=== PATIENT | female | born 1970 | race Caucasian/White ===

== ENCOUNTER 2019-10-21 14:05 | Outpatient (CLI) | payer OTHER, SELFPAY ==
[2019-10-21 15:44] LABS: Immature Reticulocyte Fraction 11.1 % (3.0-15.9); Reticulocyte Percent 1.41 % (0.7-4.3); Reticulocytes Absolute 0.06 B/L (32.2-175.7)
[2019-10-21 15:51] LABS: Hematocrit 35.9 % (37.0-47.0); Hemoglobin 11.6 g/dL (12.0-15.0); Mean Corpuscular HGB Conc 32.3 g/dl (32-36); Mean Corpuscular Hemoglobin 27.5 pg (26-34); Mean Corpuscular Volume 85.1 fl (80-100); Mean Platelet Volume 10.2 fl (7.4-10.4); Platelet Count Result 277 k/mm3 (150-375); Red Blood Count 4.22 M/mm3 (4.2-5.4); Red Cell Distribution Width 13.9 % (11.5-14.5); White Blood Count 6.6 K/mm3 (4.5-10.0)
[2019-10-21 15:55] LABS: Lipase 85 U/L (23-300)
[2019-10-21 16:01] LABS: CRP < 0.5 mg/dL (<1.0)
[2019-10-21 16:26] LABS: Iron 49 ug/dL (37-170)
[2019-10-21 16:37] LABS: Percent Iron Saturation 13 % (20-50)
[2019-10-21 16:45] LABS: Erythrocyte Sedimentation Rate 17 mm/hr (0-20)
[2019-10-21 17:04] LABS: Ferritin 6.38 ng/mL (11.1-264)
[2019-10-26 14:41] LABS: Tissue Transglutaminase IgA Ab 1 U/mL (<4)
[2019-10-27 21:56] LABS: Tissue Transglutaminase IgG Ab 1 U/mL (<6)
== END 2019-10-21 14:06 | disposition home or self-care (01) ==
PROVIDERS: Internal Medicine Gastroenterology; Physician Assistant; Visit Provider Family Medicine
DX: D64.9 Anemia, unspecified (principal); R10.9 Unspecified abdominal pain; R19.7 Diarrhea, unspecified
CPT/HCPCS: 36415; 82728; 83516; 83540; 83550; 83690; 85027; 85046; 85652; 86140; 87045; 87046; 87427; 89055

== ENCOUNTER 2019-11-10 01:25 | Outpatient (CLI) | payer OTHER, SELFPAY ==
[2019-11-10 19:01] LABS: SARS-CoV-2 RNA PCR Negative
== END 2019-11-10 01:26 | disposition home or self-care (01) ==
LOC: ANHCOVIDDT 01:25
PROVIDERS: Visit Provider Internal Medicine Gastroenterology
DX: Z01.818 Encounter for other preprocedural examination (principal); Z11.59 Encounter for screening for other viral diseases
CPT/HCPCS: 87635; C9803; U0003

== ENCOUNTER 2019-11-12 03:54 | Day surgery (SDC) | payer OTHER, SELFPAY ==
[2019-11-04 13:13] VITALS: BMI 28.1
[2019-11-12 13:05] VITALS: BP 135/77; PULSE 99; RESP 18; TEMP 36.3; O2SAT 97; BMI 30.4
[2019-11-12] MEDS: LACTATED RINGERS 1,000 ML 150 ML IV CONT (13:23)
--- NOTE | 2019-11-12 13:30 | SUR.PREOP ---
pt notified of approx 20 min delay in procedure start time. pt verbalizes understanding.
--- NOTE | 2019-11-12 13:40 | WPDANESEPPF ---
Anes - Initial Pre Proc Eval Procedure: Operation Date: 11/12/19 14:15 Proposed Procedures p Screening Colonoscopy - James Lezama MD Date/Time: 11/12/19 13:40 Surgeon: James Lezama MD Pre Op Diagnosis: neoplasm Screening Patient Data Age: 49 Gender: F Height: 5 ft 8 in Weight: 90.9 kg Last Vital Signs Temp 36.3 C L 11/12/19 13:05 Pulse 99 11/12/19 13:05 Resp 18 11/12/19 13:05 BP 135/77 11/12/19 13:05 Pulse Ox 97 11/12/19 13:05 Allergies Allergy/AdvReac Type Severity Reaction Status Date / Time nitrofurantoin Allergy Severe Difficulty Verified 11/12/19 13:05 Breathing levofloxacin Allergy Intermediate Fainting Verified 11/12/19 13:05 Penicillins Allergy Intermediate Hives Verified 11/12/19 13:05 benzonatate Allergy Unknown Unknown Verified 11/12/19 13:05 erythromycin base Allergy Unknown Unknown Verified 11/12/19 13:05 NITRATE Allergy Severe Difficulty Uncoded 11/04/19 13:55 Breathing Home Medications Medication Instructions Recorded Confirmed Type cetirizine 5 mg-pseudoephedrine ER 1 tablet PO Q12H 05/06/19 11/04/19 History 120 mg tablet,extended release,12hr omeprazole 40 mg capsule,delayed 40 mg PO DAILY 05/11/19 11/04/19 History release betamethasone valerate 0.1 % 1 applic TOPICAL DAILY #45 gm 07/05/19 11/04/19 Rx topical cream alprazolam 0.25 mg tablet 0.25 mg PO TID PRN #90 tablet 08/11/19 11/04/19 Rx peg 3350-electrolytes 236 240 ml PO Q10M #4000 ml 11/03/19 11/12/19 Rx gram-22.74 gram-6.74 gram-5.86 gram solution aspirin [Adult Low Dose Aspirin] 81 mg PO DAILY 11/04/19 11/04/19 History cholecalciferol (vitamin D3) 50 mcg PO DAILY 11/04/19 11/04/19 History vitamin B complex [B 1 tablet PO DAILY 11/04/19 11/04/19 History Complex-Vitamin B12] Patient hx anesthesia problems: post op nausea/vomiting Family hx anesthesia problems: none PMFSH Past Medical History Medical History Anemia Anxiety Colon cancer screening GERD (gastroesophageal reflux disease) Migraine Vitamin B12 deficiency Vitamin D deficiency Surgical History Surgical History History of lumpectomy Hx of tonsillectomy Family History Family History Other Diabetes mellitus Family history of arthritis Family history of coronary artery disease Family history of malignant neoplasm Hypertension Social History Social History Smoking status: Never smoker Second hand tobacco smoke exposure: No Alcohol intake: current Anes - Eval Final PreProcedure Day of Procedure 11/12/19 13:40 Patient weight: obese Heart: regular rate and rhythm Lungs: clear to auscultation Airway: Mallampati scale class II Neurological: alert and oriented Last oral intake: >/= 8 hours ASA classification: II Emergent: no Anesthetic plan: proceed Anesthesia type and monitoring: general GIVS and standard monitoring Informed Consent: The patient's anesthetic plan and its attendant risks and benefits were discussed with the patient/family/POA. Questions were solicited and answers provided to the satisfaction of the patient/family/POA.
--- NOTE | 2019-11-12 14:06 | WPDHPUPDATE1 ---
History and Physical Update Update Date/Time: 11/12/19 14:06 History and Physical has been reviewed, including an updated exam of the patient. There are NO changes in the patient's condition. Risks, benefits, and alternatives have been discussed and questions answered. Patient agrees to proceed with procedure.
[2019-11-12 14:21] VITALS: BP 108/77; PULSE 88; RESP 16; O2SAT 100
[2019-11-12 14:31] VITALS: BP 126/83; PULSE 79; RESP 16; O2SAT 100
[2019-11-12 14:41] VITALS: BP 127/84; PULSE 73; RESP 14; O2SAT 100
== END 2019-11-12 14:52 | disposition home or self-care (01) ==
PROVIDERS: Visit Provider Internal Medicine Gastroenterology
PROC: 0DJD8ZZ Inspection of Lower Intestinal Tract, Via Natural or Artificial Opening Endoscopic (ICD-10-PCS; CPT 45378; principal; 2019-11-12 14:15)
DX: Z12.11 Encounter for screening for malignant neoplasm of colon (principal); K57.30 Diverticulosis of large intestine without perforation or abscess without bleeding; K21.9 Gastro-esophageal reflux disease without esophagitis; E78.5 Hyperlipidemia, unspecified; F41.9 Anxiety disorder, unspecified; E53.8 Deficiency of other specified B group vitamins; E55.9 Vitamin D deficiency, unspecified; E66.9 Obesity, unspecified; Z68.30 Body mass index [BMI] 30.0-30.9, adult; Z88.0 Allergy status to penicillin; Z79.82 Long term (current) use of aspirin; Z79.899 Other long term (current) drug therapy
CPT/HCPCS: G0121; J2001; J2704; J7120

== ENCOUNTER 2020-05-15 12:58 | Outpatient (CLI) | payer OTHER, SELFPAY ==
--- NOTE | ~2020-05-15 | MMUS_ITS ---
EXAMINATION: MM diagnostic sourav BI w paola, US breast BI complete HISTORY: Previous abnormal mammogram TECHNIQUE: Full field and spot ML, MLO and craniocaudal 3-D tomosynthesis images of both breasts were performed and synthetic 2-D images were generated. CAD analysis was submitted and interpreted. High resolution bilateral complete breast ultrasound was performed. COMPARISON: 04/30/2019 bilateral complete breast ultrasound 04/23/2019 bilateral diagnostic digital mammogram 03/09/2018, 03/07/2017 bilateral diagnostic digital mammogram BREAST PARENCHYMAL COMPOSITION: The breasts are heterogeneously dense, which may obscure small masses . FINDINGS: MAMMOGRAPHIC FINDINGS: Stable bilateral breast masses are noted, measuring up to approximately 9 mm in the upper outer quadr ant of the right breast and possibly up to 12 mm in the anterior inner mid to upper left breast. No interval suspicious mass or architectural distortion is evident. No malignant calcification, skin thickening or retraction is detected. ULTRASOUND: Multiple bilateral parallel circumscribed anechoic and hypoechoic lesions without internal vascularit y or suspicious shadowing are identified in both breasts as on previous examination of 04/30/2019. Right breast 2:00 near nipple: 7.9 x 4.1 x 6.6 cm circumscribed hypoechoic lesion without suspicious shadowing Right breast 5:00 near nipple: 7.6 x 4.5 x 8.3 mm circumscribed hypoechoic parallel lesion without gastelum spicious shadowing or internal vascularity Right breast 8:00 2 cm from nipple: 12.2 x 4.1 x 8.9 mm circumscribed hypoechoic lesion without inter nal vascularity or posterior shadowing Right breast near nipple, 9:00 position: Circumscribed oval hypoechoic 12.6 x 7.7 x 11.4 mm hypoechoi c lesion without internal vascularity or posterior shadowing. Left breast: 4:00 6 cm from nipple: 9.1 x 3.8 x 6.5 mm circumscribed hypoechoic lesion without internal vascularit y or posterior shadowing 8:00 subareolar area: 13.9 x 7.9 x 12.7 mm circumscribed parallel hypoechoic lesion without internal vascularity, diminished in size from 9.8 x 5.8 x 16.1 mm dimension on 04/30/2019 IMPRESSION: 1. Bilateral persistent benign appearing breast masses 2. Routine annual mammographic screening follow-up is recommended. BI-RADS Category 2: Benign finding(s). Reviewed, dictated and finalized at location A. R HELPER IMPRESSION: 1. Bilateral persistent benign appearing breast masses 2. Routine annual mammographic screening follow-up is recommended. BI-RADS Category 2: Benign finding(s).
== END 2020-05-15 12:59 | disposition home or self-care (01) ==
LOC: ANHIMG 13:01
PROVIDERS: Visit Provider Obstetrics & Gynecology
DX: N63.24 Unspecified lump in the left breast, lower inner quadrant (principal); N63.23 Unspecified lump in the left breast, lower outer quadrant; N63.13 Unspecified lump in the right breast, lower outer quadrant; N63.14 Unspecified lump in the right breast, lower inner quadrant
CPT/HCPCS: 76641; 77062; 77066; G0279

== ENCOUNTER → 2020-07-17 10:14 | Outpatient (CLI) | payer OTHER, SELFPAY ==
[2020-07-17 20:24] LABS: SARS-CoV-2 RNA PCR Negative
== END ==
PROVIDERS: Visit Provider Physician Assistant
DX: R05 Cough (principal); Z20.822 Contact with and (suspected) exposure to COVID-19
CPT/HCPCS: C9803; U0003; U0005

== ENCOUNTER 2021-05-24 13:22 | Outpatient (CLI) | payer OTHER, SELFPAY ==
--- NOTE | ~2021-05-24 | MM_ITS ---
EXAMINATION: MM diagnostic sourav BI w paola HISTORY: History of bilateral breast masses and family history of breast cancer in her mother TECHNIQUE: Craniocaudal, mediolateral, and mediolateral oblique 3-D tomosynthesis images of the breas ts were performed and synthetic 2-D images were generated. CAD analysis was submitted and interpreted . COMPARISON: 05/15/2020, 04/23/2019, 03/09/2018, 03/07/2017 BREAST PARENCHYMAL COMPOSITION: There are scattered areas of fibroglandular density. FINDINGS: Stable bilateral breast masses are considered benign given the lack of interval change. The re is no evidence of suspicious mass, calcification, or architectural distortion in either breast to suggest malignancy. There has been no suspicious interval change. IMPRESSION: 1. No mammographic evidence of malignancy. 2. Recommend routine screening mammography in one year. BI-RADS Category 2: Benign finding(s). Reviewed, dictated and finalized at location A. STRENGTH INSPECTOR
== END 2021-05-24 13:23 | disposition home or self-care (01) ==
PROVIDERS: PCP Family Medicine; Visit Provider Obstetrics & Gynecology
DX: R92.8 Other abnormal and inconclusive findings on diagnostic imaging of breast (principal)
CPT/HCPCS: 77062; 77066; G0279

== ENCOUNTER → 2021-05-29 03:20 | Outpatient (CLI) | payer OTHER, SELFPAY ==
[2021-05-29 19:06] LABS: SARS-CoV-2 RNA PCR Positive
== END ==
PROVIDERS: PCP Family Medicine; Visit Provider Physician Assistant
DX: U07.1 COVID-19 (principal)
CPT/HCPCS: C9803; U0003; U0005

== ENCOUNTER 2021-07-08 22:20 | Emergency (ER) | payer OTHER, SELFPAY ==
--- NOTE | ~2021-07-08 | CT_ITS ---
EXAMINATION: CT brain wo con DATE: 07/08/2021 23:35 INDICATION: Head injury. TECHNIQUE: Computed tomography (CT) of the head was performed without intravenous contrast. The mA wa s adjusted according to patient size. Iterative reconstruction technique was employed. The dose-lengt h product was 681.00 mGy-cm. COMPARISON: Head CT 02/11/2013 FINDINGS: There is no intracranial hemorrhage, acute infarction, or abnormal intracranial mass lesion . The ventricles are normal in size. There is mild mucosal thickening in the paranasal sinuses. There are fractures of the nasal bones. The mastoid air cells are normal. The orbits are normal. There is forehead soft tissue swelling. IMPRESSION: 1. Normal brain. 2. Fractures of the nasal bones. Reviewed, dictated and finalized at location A.
--- NOTE | ~2021-07-08 | CT_ITS ---
EXAMINATION: CT facial & cervical spine wo DATE: 07/08/2021 23:35 INDICATION: Face and neck pain. Fall. TECHNIQUE: Computed tomography (CT) of the maxillofacial region and cervical spine was performed with out intravenous contrast. Automated exposure control and iterative reconstruction technique were empl oyed. The dose-length product was 487.90 mGy-cm. COMPARISON: CT cervical spine 01/05/2011 FINDINGS: MAXILLOFACIAL CT: There is forehead soft tissue swelling. There is mild mucosal thickening in the paranasal sinuses. Th ere is rightward deviation of the nasal septum. There are fracture deformities of the nasal bones. Th e orbits are normal. The mastoid air cells are normal. CERVICAL SPINE CT: There is mild scarring at the lung apices. There is 6 degrees levocurvature of cervical spine. There is kyphosis of cervical spine. Vertebral body heights are normal. There is mildly decreased disc heig ht at C3-C4 and C4-C5 and moderately decreased disc height at C5-C6 and C6-C7. The following disc lev els are specifically discussed: C2-C3: There is mild bilateral uncovertebral joint osteoarthritis. There is severe bilateral facet rolanda int osteoarthritis. There is no neural foraminal stenosis. There is no central canal stenosis. C3-C4: There is mild bilateral uncovertebral joint osteoarthritis. There is moderate right and severe left facet joint osteoarthritis. There is mild left neural foraminal stenosis. There is no central c anal stenosis. C4-C5: There is mild right and moderate left uncovertebral joint osteoarthritis. There is mild right and moderate left facet joint osteoarthritis. There is mild left neural foraminal stenosis. There is mild central canal stenosis. C5-C6: There is severe bilateral uncovertebral joint osteoarthritis. There is mild right and severe l eft facet joint osteoarthritis. There is mild right and moderate left neural foraminal stenosis. Ther e is mild central canal stenosis. C6-C7: There is mild right and severe left uncovertebral joint osteoarthritis. There is mild bilatera l facet joint osteoarthritis. There is moderate left neural foraminal stenosis. There is mild central canal stenosis. C7-T1: There is mild right uncovertebral joint osteoarthritis. There is moderate and severe left face t joint osteoarthritis. There is mild left neural foraminal stenosis. There is no central canal steno sis. IMPRESSION: 1. Fracture deformities of the nasal bones, which may be chronic. 2. Moderate cervical spondylosis. Reviewed, dictated and finalized at location A.
[2021-07-08 22:20] VITALS: BP 141/89; PULSE 90; RESP 14; O2SAT 100
[2021-07-08 22:29] VITALS: TEMP 36.9
--- NOTE | 2021-07-08 22:54 | ED.HEATRA ---
HPI - Head Injury General Chief complaint: Head Injury Stated complaint: fall with facial injuries Time Seen by Provider: 07/08/21 22:43 History of Present Illness HPI Narrative: 50-year-old female presented to emergency room with complaints of facial trauma. Patient states that she fell forward when attempting to pick something up and struck her face on the ground. Complains of pain to the nose, associated with epistaxis. Also complains of laceration to the upper lip. Denies loss of consciousness. Denies lightheadedness, dizziness, or altered mental status. Denies visual or hearing changes. Related Data Home Medications Medication Instructions Recorded Confirmed cetirizine 5 mg-pseudoephedrine ER 1 tablet PO Q12H 05/06/19 05/14/21 120 mg tablet,extended release,12hr aspirin [Adult Low Dose Aspirin] 81 mg PO DAILY 11/04/19 05/14/21 cholecalciferol (vitamin D3) 50 mcg PO DAILY 11/04/19 05/14/21 vitamin B complex [B 1 tablet PO DAILY 11/04/19 05/14/21 Complex-Vitamin B12] Allergies Allergy/AdvReac Type Severity Reaction Status Date / Time nitrofurantoin Allergy Severe Difficulty Verified 05/14/21 14:24 Breathing levofloxacin Allergy Intermediate hypokalemia Verified 05/14/21 14:24 Penicillins Allergy Intermediate Hives Verified 05/14/21 14:24 amoxicillin Allergy Mild Unknown Verified 05/14/21 14:24 benzonatate Allergy Unknown Unknown Verified 05/14/21 14:24 erythromycin base AdvReac Severe Nausea Verified 05/14/21 14:24 NITRATE Allergy Severe Difficulty Uncoded 10/31/20 11:38 Breathing Review of Systems Review of Systems: CONSTITUTIONAL: Denies fever, chills, or sweats. EYES: Denies visual changes, redness, or discharge. ENT: Reports nasal pain, reports epistaxis CARDIOVASCULAR: Denies chest pain, palpitations, or edema. RESPIRATORY: Denies cough or dyspnea. GASTROINTESTINAL: Denies abdominal pain, nausea, vomiting, or diarrhea. GENITOURINARY: Denies dysuria or hematuria. SKIN: Denies rash or itching. MUSCULOSKELETAL: Denies back pain, joint pain, or myalgia. NEUROLOGIC: Denies headache, numbness, dizziness, or weakness. PSYCHIATRIC: Denies anxiety or depression. [facility] Past Medical History Medical History Anemia Anxiety Colon cancer screening (~09/2019) Normal Depression GERD (gastroesophageal reflux disease) Migraine Normal Pap smear Vitamin B12 deficiency Vitamin D deficiency Surgical History Surgical History Delivery by section (04/28/03) primary emergency c/s breech Delivery by section (05/11/08) rpt c/s H/O sinus surgery (~04/28/98) H/O ultrasound guided needle biopsy (09/26/15) us guided core bx of right breast / fibroadenoma History of gynecological procedure (03/05/16) mirena iud removal and insertion of new device History of gynecological procedure (10/11/08) mirena iud insertion History of lumpectomy (~04/28/84) lumpectomy 86' 87'95' 98' Hx of tonsillectomy (~04/28/75) Family History Family History Other Diabetes mellitus Family history of arthritis Family history of coronary artery disease Family history of malignant neoplasm Hypertension Social History Social History Second hand tobacco smoke exposure: No Alcohol intake: current Drinks per week: 1 Substance use: never Substance use type: does not use Gender identity (if verbalized by the patient): Female Spiritual care concerns: No Agree to blood products: Yes Exam Narrative: GENERAL: Well-appearing, well-nourished, and in no acute distress. HEAD: Normocephalic, atraumatic. Obvious bony abnormality to the nose with ecchymosis and tenderness EYES: PERRLA and EOMI. ENT: Epistaxis controlled. NECK: Supple. No adenopathy or masses. No carotid bruits or
[2021-07-09] MEDS: TETANUS,DIPHTHERIA,AC PERTUSSIS ADULT (0.5 ML) BOOSTRIX IM (01:46)
[2021-07-09 02:01] VITALS: BP 134/91; PULSE 98; RESP 18; O2SAT 100
== END 2021-07-09 02:01 | disposition home or self-care (01) ==
PROVIDERS: Emergency Provider Nurse Practitioner Family; PCP Family Medicine
DX: S01.511A Laceration without foreign body of lip, initial encounter (principal); S00.33XA Contusion of nose, initial encounter; Z23 Encounter for immunization; K21.9 Gastro-esophageal reflux disease without esophagitis; E53.8 Deficiency of other specified B group vitamins; E55.9 Vitamin D deficiency, unspecified; Z86.2 Personal history of diseases of the blood and blood-forming organs and certain disorders involving the immune mechanism; Z79.82 Long term (current) use of aspirin; M47.812 Spondylosis without myelopathy or radiculopathy, cervical region; W18.39XA Other fall on same level, initial encounter
CPT/HCPCS: 12051; 70450; 70486; 72125; 90471; 90715; 99284

== ENCOUNTER 2022-03-30 13:34 | Emergency (ER) | payer OTHER, SELFPAY ==
[2022-03-30 13:42] VITALS: BP 130/85; PULSE 85; RESP 16; TEMP 36.8; O2SAT 100
--- NOTE | 2022-03-30 14:02 | ED.URI ---
HPI - URI/Sore Throat General Chief Complaint: Ear Stated Complaint: ear pain sinus pressure Time Seen by Provider: 03/30/22 14:02 Source: patient and RN notes reviewed History of Present Illness HPI Narrative: patient is a 51-year-old female who presents to urgent care with complaints of right-sided ear pain and sinus pressure. Patient states that she woke up with the ear pain at 4:00 a.m. this morning and she has been taking Mucinex and cold medication since last night. Patient states that she does see an ENT and has had recurrent ear infections as an adult with tubes. Patient also takes a daily Zyrtec and uses Flonase nasal spray. No other acute complaints. No acute distress noted. Patient aware of the plan of care. Some parts of this dictation were generated by voice recognition software and may contain typographical and/or grammatical inaccuracies. Related Data Home Medications Medication Instructions Recorded Confirmed cetirizine 5 mg-pseudoephedrine ER 1 tablet PO Q12H 05/06/19 03/30/22 120 mg tablet,extended release,12hr (Zyrtec-D) aspirin 81 mg tablet,delayed 81 mg PO DAILY 11/04/19 03/30/22 release (Adult Low Dose Aspirin) cholecalciferol (vitamin D3) 50 50 mcg PO DAILY 11/04/19 03/30/22 mcg (2,000 unit) tablet vitamin B complex (B 1 tablet PO DAILY 11/04/19 03/30/22 Complex-Vitamin B12 tablet) Allergies Allergy/AdvReac Type Severity Reaction Status Date / Time nitrofurantoin Allergy Severe Difficulty Verified 03/30/22 13:57 Breathing levofloxacin Allergy Intermediate hypokalemia Verified 03/30/22 13:57 Penicillins Allergy Intermediate Hives Verified 03/30/22 13:57 amoxicillin Allergy Mild Unknown Verified 03/30/22 13:57 benzonatate Allergy Unknown Unknown Verified 03/30/22 13:57 erythromycin base AdvReac Severe Nausea Verified 03/30/22 13:57 venlafaxine AdvReac Intermediate Nausea Verified 03/30/22 13:57 NITRATE Allergy Severe Difficulty Uncoded 11/14/21 15:13 Breathing Review of Systems Review of Systems: CONSTITUTIONAL: Denies fever, chills, or sweats. EYES: Denies visual changes, redness, or discharge. ENT: Reports of right otalgia sinus pressure CARDIOVASCULAR: Denies chest pain, palpitations, or edema. RESPIRATORY: Denies cough or dyspnea. GASTROINTESTINAL: Denies abdominal pain, nausea, vomiting, or diarrhea. GENITOURINARY: Denies dysuria or hematuria. SKIN: Denies rash or itching. MUSCULOSKELETAL: Denies back pain, joint pain, or myalgia. NEUROLOGIC: Denies headache, numbness, or weakness. All other systems reviewed are negative, except as documented in HPI. [facility] Past Medical History Medical History Anemia Anxiety Colon cancer screening (~09/2019) Normal Depression GERD (gastroesophageal reflux disease) Migraine Normal Pap smear Vitamin B12 deficiency Vitamin D deficiency Surgical History Surgical History Delivery by section (04/28/03) primary emergency c/s breech Delivery by section (05/11/08) rpt c/s H/O sinus surgery (~04/28/98) H/O ultrasound guided needle biopsy (09/26/15) us guided core bx of right breast / fibroadenoma History of gynecological procedure (03/05/16) mirena iud removal and insertion of new device History of gynecological procedure (10/11/08) mirena iud insertion History of lumpectomy (~04/28/84) lumpectomy 86' 87'95' 98' Hx of tonsillectomy (~04/28/75) Family History Family History Other Diabetes mellitus Family history of arthritis Family history of coronary artery disease Family history of malignant neoplasm Hypertension Social History Social History (Updated 11/14/21 @ 15:18 by Bela Irwin CMA) Smoking status: Never smoker Second hand tobacco smoke exposure: No Alcohol intake: current Drinks per week:
== END 2022-03-30 14:28 | disposition home or self-care (01) ==
PROVIDERS: Emergency Provider Nurse Practitioner Family; PCP Family Medicine
DX: H66.91 Otitis media, unspecified, right ear (principal); K21.9 Gastro-esophageal reflux disease without esophagitis; E55.9 Vitamin D deficiency, unspecified; Z79.82 Long term (current) use of aspirin; E53.8 Deficiency of other specified B group vitamins; F41.9 Anxiety disorder, unspecified; F32.A Depression, unspecified
CPT/HCPCS: 99213; G0463

== ENCOUNTER 2022-10-09 08:30 | Outpatient (RCR) | payer OTHER, SELFPAY | END 2022-10-22 23:59 | disposition home or self-care (01) | LOC: ANHBWCAUD 08:30 | PROVIDERS: PCP Family Medicine; Visit Provider Otolaryngology | DX: Z46.1 Encounter for fitting and adjustment of hearing aid (principal) | CPT/HCPCS: 99199; V5261 ==

== ENCOUNTER → 2022-12-24 12:37 | Outpatient (CLI) | payer OTHER, SELFPAY ==
--- NOTE | ~2022-12-24 | MM_ITS ---
EXAMINATION: MM screening sourav BI w paola HISTORY: Screening mammogram, family history of breast cancer in her mother. TECHNIQUE: Craniocaudal and mediolateral oblique 3-D tomosynthesis images were obtained and synthetic 2-D images were generated. CAD analysis was submitted and interpreted. COMPARISON: 05/24/2021, 05/15/2020, 03/09/2018, 03/07/2017 BREAST PARENCHYMAL COMPOSITION: There are scattered areas of fibroglandular density. FINDINGS: Stable bilateral breast masses are consistent with benign findings. No suspicious mass, joe cification, or architectural distortion are identified in either breast to suggest malignancy. There has been no suspicious interval change. IMPRESSION: 1. No mammographic evidence of malignancy. 2. Recommend routine screening mammography in one year. BI-RADS Category 2: Benign finding(s). Reviewed, dictated and finalized at location A.
== END ==
PROVIDERS: PCP Family Medicine; Visit Provider Family Medicine
DX: Z12.31 Encounter for screening mammogram for malignant neoplasm of breast (principal)
CPT/HCPCS: 77063; 77067

== ENCOUNTER 2023-04-17 16:27 | Outpatient (CLI) | payer OTHER, SELFPAY ==
--- NOTE | ~2023-04-17 | XR_ITS ---
EXAM: XR hip LT min 3V w AP pelvis DATE: 04/17/2023 16:55 HISTORY: LT HIP PAIN . COMPARISON: None available. FINDINGS: Normal mineralization. No fracture or dislocation. No lytic or blastic lesion. Joint space s and physes are maintained. No erosion or periosteal change. Soft tissues within normal limits. Pelv ic malleolus. IUD. IMPRESSION: Normal pelvis and left hip radiograph findings. Reviewed, dictated and finalized at location K. ATRICS PHYSICIAN
== END 2023-04-17 16:28 ==
PROVIDERS: PCP Family Medicine; Visit Provider Chiropractor
DX: M25.552 Pain in left hip (principal)
CPT/HCPCS: 73502

== ENCOUNTER 2023-11-05 15:57 | Outpatient (CLI) | payer OTHER, SELFPAY ==
[2023-11-06 11:59] LABS: FSH 147.4 mIU/mL
[2023-11-14 02:56] LABS: Estradiol, Ultrasensitive 2 pg/mL
== END 2023-11-05 15:58 | disposition home or self-care (01) ==
LOC: ANHGOSHLAB 15:59
PROVIDERS: PCP Family Medicine; Visit Provider Obstetrics & Gynecology
DX: N95.1 Menopausal and female climacteric states (principal)
CPT/HCPCS: 36415; 82670; 83001

== ENCOUNTER 2024-03-06 11:31 | Outpatient (CLI) | payer OTHER, SELFPAY ==
--- NOTE | ~2024-03-06 | MM_ITS ---
EXAMINATION: MM screening sourav BI w paola HISTORY: Screening mammogram, family history of breast cancer in her mother. TECHNIQUE: Craniocaudal and mediolateral oblique 3-D tomosynthesis images were obtained and synthetic 2-D images were generated. CAD analysis was submitted and interpreted. COMPARISON: 12/24/2022: 2722, 05/15/2020, 04/23/2019 BREAST PARENCHYMAL COMPOSITION:Not Dense. There are scattered areas of fibroglandular density. FINDINGS: Stable bilateral breast masses are noted. No suspicious mass, calcification, or architectur al distortion are identified in either breast to suggest malignancy. There has been no suspicious int erval change. IMPRESSION: No mammographic evidence of malignancy. Recommend routine screening mammography in one year. BI-RADS Category 2: Benign finding(s). Reviewed, dictated and finalized at location . TH UNDERWRITER
== END 2024-03-06 11:32 | disposition home or self-care (01) ==
LOC: MICIMG 11:31
PROVIDERS: PCP Obstetrics & Gynecology; Visit Provider Obstetrics & Gynecology
DX: Z12.31 Encounter for screening mammogram for malignant neoplasm of breast (principal)
CPT/HCPCS: 77063; 77067

== ENCOUNTER 2024-05-17 12:01 | Outpatient (CLI) | payer OTHER, SELFPAY ==
--- NOTE | ~2024-05-17 | MR_ITS ---
MRI of the left hip Clinical history: Pain Technique: Coronal T1-weighted, T2-weighted, and proton-density fat-sat images, and axial T1-weighted and proton-density fat-sat images were acquired through the pelvis. Coronal T2-weighted images and c oronal, axial, and sagittal proton-density fat-sat images were acquired through the left hip. Findings: There is no acute fracture or avascular necrosis of either hip. Bone marrow signals in the proximal femora and pelvic bones are unremarkable. There is probable minimal degenerative spurring at the right femoral head neck junction. No significant bony productive change of the left hip joint se en. Probable mild chondral malacia the superior hip joints bilaterally. No joint effusion. No left ac etabular labral tear evident. There is tendinosis of the distal gluteus medius tendon as trochanteric insertion with probable focal partial-thickness tear. There is a small fluid collection near the left greater trochanter, suggesti ve of trochanteric bursitis (series 7 image 22). Remaining musculature and tendons appear intact. IMPRESSION: Tendinosis and focal partial tear of the distal left gluteus medius tendon. Left greater trochanteric bursitis. Reviewed, dictated and finalized at location M. AL SECURITY SPECIALIST
== END 2024-05-17 12:02 | disposition home or self-care (01) ==
PROVIDERS: PCP Chiropractor; Visit Provider Chiropractor
DX: M76.02 Gluteal tendinitis, left hip (principal); S76.011A Strain of muscle, fascia and tendon of right hip, initial encounter; X58.XXXA Exposure to other specified factors, initial encounter
CPT/HCPCS: 73721

== ENCOUNTER 2024-06-29 14:44 | Outpatient (CLI) | payer OTHER, SELFPAY | END 2024-06-29 14:45 | disposition home or self-care (01) | LOC: MICIMG 14:48 | PROVIDERS: PCP Chiropractor; Visit Provider Orthopaedic Surgery | DX: M47.816 Spondylosis without myelopathy or radiculopathy, lumbar region (principal) | CPT/HCPCS: 72148 ==

== ENCOUNTER 2024-06-29 14:50 | Outpatient (CLI) | payer OTHER, SELFPAY | END 2024-06-29 14:51 | disposition home or self-care (01) | LOC: MICIMG 14:51 | PROVIDERS: PCP Chiropractor; Visit Provider Chiropractor | DX: M25.542 Pain in joints of left hand (principal); M25.541 Pain in joints of right hand | CPT/HCPCS: 73130 ==

== ENCOUNTER 2024-11-11 10:24 | Outpatient (CLI) | payer OTHER, SELFPAY ==
--- OUTSIDE RECORDS SUMMARY | 2024-11-11 10:46 | XMS_ITS | Referral Summary ---
Author Organization [facility] at the [facility] Address [address] [place] [id number] Care Team Providers Care Managing Partner [employer] Name Role Phone Jennifer Reyes MD Primary Care Provider [phone] Allergies Active Allergy Reactions Criticality Noted Date Comments Levofloxacin Nitrofurantoin Penicillins Medications cephalexin (KEFLEX) 500 mg capsule Take 1 capsule (500 mg total) by mouth every 12 (twelve) hours 3 Active cetirizine-pseu doephedrine ER (ZyrTEC-D) 5-120 mg per 12 hr tablet Take 1 tablet by mouth daily Active ALPRAZolam (XANAX) 0.25 mg tablet Active buPROPion XL (WELLBUTRIN XL) 300 mg 24 hr tablet Take 1 tablet (300 mg total) by mouth information systems consultant before breakfast 2 Active cholecalciferol (VITAMIN D-3) 2000 unit capsule Take 1 capsule (2,000 Units total) by mouth daily Active aspirin 81 mg enteric coated tablet Take 1 tablet (81 mg total) by mouth daily Active topiramate (TOPAMAX) 50 mg tablet 3 Active omeprazole (PriLOSEC) 40 mg capsule Active benzonatate (TESSALON) 100 mg capsuleIndicati ons:Cough Take 1 capsule (100 mg total) by mouth 3 (three) times a day as needed for cough 42 capsule 3 Active Additional Information Patient not taking.Reported on 07/15/2024 cyanocobalamin (Vitamin B-12) 2,000 mcg tablet Active Active Problems No known active problems Social History Tobacco Use Types Packs/Day Years Used Date Smoking Tobacco: Never Assessed Comments Unknown Sex and Gender Information Value Date Recorded Sex Assigned at Not on file Legal Sex Female 11:28 AM OUTSOLE SCHEDULER Gender Identity Not on file Sexual Orientation Not on file Last Filed Vital Signs Vital Sign Reading Time Taken Comments Blood Pressure 122/80 07/15/2024 5:01 PM CDT Pulse 86 07/15/2024 5:01 PM CDT Temperature 36.5 C (97.7 F) 07/15/2024 5:01 PM CDT Respiratory Rate 16 07/15/2024 5:01 PM CDT Oxygen Saturation 98% 07/15/2024 5:01 PM CDT Inhaled Oxygen Concentration - - Weight 72.6 kg (160 lb) 07/15/2024 5:01 PM CDT Height 172.7 cm (5' 8) 07/15/2024 5:01 PM CDT Body Mass Index 24.33 07/15/2024 5:01 PM CDT Plan of Treatment Not on file Insurance [facility] [employer] [facility] Care Teams Managing Partner [employer] Relationship Specialty Start Date End Date Jennifer Reyes MD PCP - General 05/09/11
--- OUTSIDE RECORDS SUMMARY | 2024-11-11 10:46 | XMS_ITS | Clinical Summary ---
Author Organization 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 2 Active cholecalciferol (VITAMIN D-3) [...] Active Active Problems No known active problems Surgical History Surgery Date Site/Laterality Comments EAR SURGERY Medical History Medical History Date Comments GERD (gastroesophageal reflux disease) Anxiety Depression Headache Social History Tobacco Use Types Packs/Day Years Used Date Smoking Tobacco: Never Assessed Comments Unknown Sex and Gender Information Value Date Recorded Sex Assigned at Not on file 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 Gender Identity Not on file Sexual Orientation Not on file Obstetrics History Last Filed Vital Signs Vital Sign Reading [...] 07/15/2024 5:01 PM CDT Plan of Treatment Health Maintenance Due Date Last Done Comments Breast Cancer Screening-Mammogram 1968 Cervical Cancer Screening 1968 Colon Cancer Screening-Colonoscopy 1968 Depression Screening 1968 Hepatitis C Screening 1968 Hepatitis B Screening 1986 Regular Well Visit/Exam 18-64 1986 Zoster Vaccine (1 of 2) 2018 Covid-19 Vaccine ( season) 2023 02/15/2022, 04/25/2021, 07/15/2020, Additional history exists Influenza Vaccine (#1) 2024 , 02/05/2021, 01/23/2020, Additional history exists DTaP/Tdap/Td Vaccine (3 - Td or Tdap) 07/10/2031 07/09/2021, 10/03/2017 Pneumococcal vaccine <65 Aged Out No longer eligible based on patient's age to complete this topic Insurance [facility] [employer] [facility] Care Teams Senior Master Scheduler Relationship Specialty Start Date End Date Jennifer Reyes MD PCP - General 05/09/11
[2024-11-11 18:40] LABS: Hematocrit 39.3 % (37.0-47.0); Hemoglobin 12.4 g/dL (12.0-15.0); Immature Granulocyte Percent A 0.2 % (0-0.5); Lymphocytes Absolute Auto 1.73 K/mm3 (0.9-3.2); Mean Corpuscular HGB Conc 31.6 g/dl (32-36); Mean Corpuscular Hemoglobin 28.3 pg (26-34); Mean Corpuscular Volume 89.7 fl (80-100); Nucleated Red Blood Cells Absolute Auto 0.000 K/mm3 (0.0-0.012); Nucleated Red Blood Cells Perc 0.0 % (0.0-0.2); Platelet Count Result 279 k/mm3 (150-375); Red Blood Count 4.38 M/mm3 (4.2-5.4); White Blood Count 5.0 K/mm3 (4.5-10.0)
[2024-11-11 19:06] LABS: Alanine Aminotransferase 19 U/L (6-35); Albumin Level 4.0 g/dL (3.5-5.1); Alkaline Phosphatase 56 U/L (38-126); Anion Gap 7 mmol/L (4-12); Aspartate Amino Transferase 35 U/L (14-36); Bilirubin,Total 0.4 mg/dL (0.2-1.3); Blood Urea Nitrogen 17 mg/dL (7-17); Calcium 9.7 mg/dL (8.4-10.2); Carbon Dioxide 26 mmol/L (22-30); Chloride 109 mmol/L (98-107); Cholesterol 266 mg/dL (0-200); Estimated Glomerular Filt Rate 53; Glucose 75 mg/dL (65-110); HDL Direct 78 mg/dL; Potassium 4.4 mmol/L (3.4-5.0); Sodium 142 mmol/L (137-145); Total Protein 6.5 g/dL (6.3-8.2); Triglycerides 83 mg/dL (<150)
[2024-11-11 19:32] LABS: Thyroid Stimulating Hormone Reflex 0.562 uIU/mL (0.465-4.68)
== END 2024-11-11 10:25 | disposition home or self-care (01) ==
LOC: ANHGOSHLAB 10:25
PROVIDERS: PCP Family Medicine; Visit Provider Family Medicine
DX: Z00.00 Encounter for general adult medical examination without abnormal findings (principal); E78.2 Mixed hyperlipidemia; R53.83 Other fatigue
CPT/HCPCS: 36415; 80053; 80061; 84443; 85025

== ENCOUNTER 2025-03-18 15:34 | Outpatient (CLI) | payer OTHER, SELFPAY ==
--- NOTE | ~2025-03-18 | MM_ITS ---
EXAMINATION: MM screening [facility] HISTORY: Screening TECHNIQUE: Craniocaudal and mediolateral oblique 3-D tomosynthesis images were obtained and synthetic 2-D images were generated. CAD analysis was submitted and interpreted. COMPARISON: Comparison to multiple prior studies sequentially, with oldest reviewed study dated 03/09/2018. BREAST PARENCHYMAL COMPOSITION: Dense: The breasts are heterogeneously dense, which may obscure small masses FINDINGS: There are stable bilateral obscured breast masses which were previously characterized as benign by ultrasound. There is no evidence of suspicious mass, calcification, or architectural distortion to suggest malignancy in either breast. There has been no suspicious interval change. IMPRESSION: 1. No mammographic evidence of malignancy. 2. Recommend routine screening mammography in one year. BI-RADS Category 2: Benign finding(s). Reviewed, dictated and finalized at location O. LTY MEMBER
== END 2025-03-18 15:35 | disposition home or self-care (01) ==
LOC: MICIMG 15:36
PROVIDERS: PCP Obstetrics & Gynecology; Visit Provider Obstetrics & Gynecology
DX: Z12.31 Encounter for screening mammogram for malignant neoplasm of breast (principal)
CPT/HCPCS: 77063; 77067